=== PATIENT | female | born 1945 | race Caucasian/White ===

== ENCOUNTER 2019-07-07 10:50 | Inpatient (IN) | payer MEDICARE, MEDICAID ==
[~2019-07-07] VITALS: Ht 137.2 cm; Wt 78.1 kg
[~2019-07-07 10:50] MED LIST: ACET325T53 PO; AMI200 PO; ATOR20TA64 PO; DILT30TA36 PO; FAMO40TA7 PO; ONDA4TAB5 PO; REN800 PO
[2019-07-07 10:56] VITALS: BP_SYST 164
[2019-07-07 11:46] LABS: BASOPHILS % (AUTO) 0.3 % (0.0-2.0); EOSINOPHILS # (AUTO) 0.1 K/uL (0.0-0.4); EOSINOPHILS % (AUTO) 0.8 % (0.0-4.0); HEMATOCRIT 39.4 % (36-48); HEMOGLOBIN 12.2 g/dL (12.0-16.0); LYMPHOCYTES # (AUTO) 1.7 K/uL (1.0-5.5); LYMPHOCYTES % (AUTO) 16.9 % (20.5-51.5); MEAN CORPUSCULAR HEMOGLOBIN 31 pg (27-31); MEAN CORPUSCULAR HGB CONC 31 % (32-36); MEAN CORPUSCULAR VOLUME 98 fL (79.0-98.0); MONOCYTES # (AUTO) 0.7 K/uL (0.0-1.0); MONOCYTES % (AUTO) 7.6 % (1.7-9.3); NEUTROPHILS # (AUTO) 7.3 K/uL (1.8-7.7); NEUTROPHILS % (AUTO) 74.4 % (40.0-70.0); PLATELET COUNT (AUTO) 165 K/uL (130-430); RED CELL DISTRIBUTION WIDTH 17.2 % (9.0-15.0); WHITE BLOOD COUNT (AUTO) 9.8 K/uL (4.8-10.8)
[2019-07-07 11:54] LABS: ANION GAP 18 (5-15); CALCIUM 8.7 mg/dL (8.4-11.0); CHLORIDE 95 mmol/L (98-107); GLUCOSE 192 mg/dL (70-99); SODIUM SERUM 131 mmol/L (136-145); UREA NITROGEN, BLOOD 82 mg/dL (8-21)
[2019-07-07 12:00] LABS: ALANINE AMINOTRANSFERASE 11 U/L (12-78); ALBUMIN 3.7 g/dL (3.4-4.8); ASPARTATE AMINOTRANSFERASE 22 U/L (10-37); TOTAL BILIRUBIN 0.3 mg/dL (0.0-1.0)
[2019-07-07 12:03] LABS: INR 3.6 (0.8-1.2); PROTHROMBIN TIME 35.4 SECS (9.5-12.5)
[2019-07-07 12:04] LABS: POTASSIUM 5.8 mmol/L (3.5-5.1)
[2019-07-07 12:05] LABS: CREATININE 9.07 mg/dL (0.55-1.30)
[2019-07-07] MEDS ORDERED: INSULIN REGULAR, HUMAN 10 UNITS/0.1 ML INJ IVP ONE (12:45)
[2019-07-07] MEDS ORDERED: SODIUM BICARBONATE 8.4% JECT 50 MEQ/50 ML SYRINGE IVP ONE (12:45)
[2019-07-07] MEDS ORDERED: DEXTROSE 50% JECT 50 ML DISP.SYRIN IVP ONE ×2 (12:45→17:30)
[2019-07-07] MEDS ORDERED: TRAZ-250 PO (16:34)
[2019-07-07] MEDS ORDERED: LACT10SO6 PO (16:34)
[2019-07-07] MEDS ORDERED: ALBMDI INH (16:34)
[2019-07-07] MEDS ORDERED: CETI10CA20 PO (16:34)
[2019-07-07] MEDS ORDERED: SSREG SUBCUT (16:34)
[2019-07-07] MEDS ORDERED: WARF5TAB2 PO (16:34)
[2019-07-07] MEDS ORDERED: HUM100IN SQ (16:34)
[2019-07-07] MEDS ORDERED: FER300L PO (16:34)
[2019-07-07 17:00] LABS: CALCIUM 8.4 mg/dL (8.4-11.0); CHLORIDE 97 mmol/L (98-107); GLUCOSE 163 mg/dL (70-99); SODIUM SERUM 134 mmol/L (136-145)
[2019-07-07 17:10] LABS: ANION GAP 18 (5-15)
[2019-07-07 17:11] LABS: UREA NITROGEN, BLOOD 85 mg/dL (8-21)
[2019-07-07 17:14] LABS: POTASSIUM 6.3 mmol/L (3.5-5.1)
[2019-07-07] MEDS ORDERED: INSULIN REGULAR, HUMAN 100 UNITS/ML, 10 ML VIAL SUBCUT ONE (17:30)
[2019-07-07] MEDS ORDERED: DEXTROSE 50% JECT 50 ML DISP.SYRIN IVP PRN (18:00)
[2019-07-07] MEDS ORDERED: SODIUM POLYSTYRENE SULFONATE 15 GM/60 ML UDBTL PO ONE ×2 (18:15→18:30)
[2019-07-07] MEDS ORDERED: SODIUM POLYSTYRENE SULFONATE 15 GM/60 ML UDBTL ONE (18:29)
[2019-07-07 18:46] VITALS: BP_SYST 158
[2019-07-07 19:49] VITALS: BP_SYST 157
[2019-07-07] MEDS: DILTIAZEM HCL 30 MG TABLET PO SCH (21:00)
[2019-07-07] MEDS ORDERED: HEPARIN SODIUM,PORCINE 5000 UNITS/ML VIAL ONE (22:27)
[2019-07-07] MEDS: FAMOTIDINE 20 MG TABLET PO SCH (23:15)
[2019-07-07] MEDS: INSULIN REGULAR, HUMAN 100 UNITS/ML, 10 ML VIAL (humuLIN R) SUBCUT PRN (23:28)
[2019-07-08 00:07] VITALS: BP_SYST 106
[2019-07-08 06:32] LABS: BASOPHILS % (AUTO) 0.3 % (0.0-2.0); EOSINOPHILS # (AUTO) 0.1 K/uL (0.0-0.4); EOSINOPHILS % (AUTO) 1.4 % (0.0-4.0); HEMATOCRIT 32.9 % (36-48); HEMOGLOBIN 10.7 g/dL (12.0-16.0); LYMPHOCYTES # (AUTO) 1.1 K/uL (1.0-5.5); LYMPHOCYTES % (AUTO) 17.2 % (20.5-51.5); MEAN CORPUSCULAR HEMOGLOBIN 30 pg (27-31); MEAN CORPUSCULAR HGB CONC 33 % (32-36); MEAN CORPUSCULAR VOLUME 93 fL (79.0-98.0); MONOCYTES # (AUTO) 0.7 K/uL (0.0-1.0); MONOCYTES % (AUTO) 11.6 % (1.7-9.3); NEUTROPHILS # (AUTO) 4.5 K/uL (1.8-7.7); NEUTROPHILS % (AUTO) 69.5 % (40.0-70.0); PLATELET COUNT (AUTO) 147 K/uL (130-430); RED BLOOD CELL COUNT(AUTO) 3.53 MIL/uL (4.2-6.2); RED CELL DISTRIBUTION WIDTH 16.7 % (9.0-15.0); WHITE BLOOD COUNT (AUTO) 6.4 K/uL (4.8-10.8)
[2019-07-08 06:46] LABS: ANION GAP 8 (5-15); CALCIUM 7.7 mg/dL (8.4-11.0); CHLORIDE 96 mmol/L (98-107); CREATININE 5.58 mg/dL (0.55-1.30); GLUCOSE 83 mg/dL (70-99); SODIUM SERUM 132 mmol/L (136-145); UREA NITROGEN, BLOOD 35 mg/dL (8-21)
[2019-07-08 07:46] VITALS: BP_SYST 114
[2019-07-08 08:14] LABS: POTASSIUM 2.7 mmol/L (3.5-5.1)
[2019-07-08] MEDS: DILTIAZEM HCL 30 MG TABLET PO SCH ×3 (08:50→22:07)
[2019-07-08] MEDS: ATORVASTATIN 20 MG TABLET PO SCH (08:51)
[2019-07-08] MEDS: AMIODARONE HCL 200 MG TABLET PO SCH (08:51)
[2019-07-08] MEDS: FERROUS SULFATE 300 MG/5 ML UDC PO SCH (08:51)
[2019-07-08] MEDS: INSULIN REGULAR, HUMAN 100 UNITS/ML, 10 ML VIAL (humuLIN R) SUBCUT PRN (11:56)
[2019-07-08 12:45] VITALS: BP_SYST 101
[2019-07-08 14:57] VITALS: BP_SYST 95
[2019-07-08 16:16] VITALS: BP_SYST 105
[2019-07-08] MEDS ORDERED: HUM100IN SQ (16:24)
[2019-07-08] MEDS ORDERED: FERR-69 PO (16:24)
[2019-07-08] MEDS ORDERED: FAMO20TA8 PO (16:24)
[2019-07-08] MEDS ORDERED: CICL6.1H5 NS (16:24)
[2019-07-08] MEDS ORDERED: TRAM50TA2 PO (16:25)
[2019-07-08 20:00] VITALS: BP_SYST 127
[2019-07-08] MEDS: FAMOTIDINE 20 MG TABLET PO SCH (21:00)
[2019-07-09 01:23] VITALS: BP_SYST 104
[2019-07-09] MEDS: DILTIAZEM HCL 30 MG TABLET PO SCH ×3 (09:00→21:33)
[2019-07-09] MEDS: ATORVASTATIN 20 MG TABLET PO SCH (09:00)
[2019-07-09] MEDS: AMIODARONE HCL 200 MG TABLET PO SCH (09:00)
[2019-07-09] MEDS: FERROUS SULFATE 300 MG/5 ML UDC PO SCH (10:24)
[2019-07-09 12:32] VITALS: BP_SYST 132
[2019-07-09] MEDS: INSULIN REGULAR, HUMAN 100 UNITS/ML, 10 ML VIAL (humuLIN R) SUBCUT PRN (13:04)
[2019-07-09 16:00] VITALS: BP_SYST 127
[2019-07-09 20:00] VITALS: BP_SYST 110
[2019-07-09] MEDS: FAMOTIDINE 20 MG TABLET PO SCH (21:00)
[2019-07-10] MEDS: INSULIN REGULAR, HUMAN 100 UNITS/ML, 10 ML VIAL (humuLIN R) SUBCUT PRN ×2 (00:14→11:47)
[2019-07-10] MEDS: DILTIAZEM HCL 30 MG TABLET PO SCH ×2 (08:41→16:03)
[2019-07-10] MEDS: FERROUS SULFATE 300 MG/5 ML UDC PO SCH (08:42)
[2019-07-10] MEDS: AMIODARONE HCL 200 MG TABLET PO SCH (08:42)
[2019-07-10] MEDS: ATORVASTATIN 20 MG TABLET PO SCH (08:43)
[2019-07-10 08:48] VITALS: BP_SYST 109
[2019-07-10 12:35] VITALS: BP_SYST 108
[2019-07-10 13:37] LABS: BASOPHILS % (AUTO) 0.5 % (0.0-2.0); EOSINOPHILS # (AUTO) 0.3 K/uL (0.0-0.4); EOSINOPHILS % (AUTO) 3.5 % (0.0-4.0); HEMATOCRIT 39.1 % (36-48); HEMOGLOBIN 12.8 g/dL (12.0-16.0); LYMPHOCYTES # (AUTO) 1.3 K/uL (1.0-5.5); LYMPHOCYTES % (AUTO) 16.7 % (20.5-51.5); MEAN CORPUSCULAR HEMOGLOBIN 31 pg (27-31); MEAN CORPUSCULAR HGB CONC 33 % (32-36); MEAN CORPUSCULAR VOLUME 95 fL (79.0-98.0); MONOCYTES # (AUTO) 0.6 K/uL (0.0-1.0); MONOCYTES % (AUTO) 7.3 % (1.7-9.3); NEUTROPHILS # (AUTO) 5.8 K/uL (1.8-7.7); PLATELET COUNT (AUTO) 168 K/uL (130-430); RED BLOOD CELL COUNT(AUTO) 4.13 MIL/uL (4.2-6.2); RED CELL DISTRIBUTION WIDTH 16.6 % (9.0-15.0)
[2019-07-10 13:51] LABS: ANION GAP 13 (5-15); CALCIUM 8.6 mg/dL (8.4-11.0); CHLORIDE 92 mmol/L (98-107); CREATININE 6.34 mg/dL (0.55-1.30); GLUCOSE 248 mg/dL (70-99); POTASSIUM 3.7 mmol/L (3.5-5.1); SODIUM SERUM 130 mmol/L (136-145); UREA NITROGEN, BLOOD 52 mg/dL (8-21)
[2019-07-10 15:32] LABS: INR 1.2 (0.8-1.2); PROTHROMBIN TIME 11.7 SECS (9.5-12.5)
[2019-07-10 16:03] VITALS: BP_SYST 125
[2019-07-10 16:39] VITALS: BP_SYST 125
[2019-07-10] MEDS ORDERED: WARF2.5T2 PO (18:10)
== END 2019-07-10 19:17 | disposition home or self-care (01) | DRG 640 ==
LOC: SED 10:50 → STU 16:33
PROVIDERS: ADMIT Internal Medicine Hospice and Palliative Medicine; ATTEND Internal Medicine Hospice and Palliative Medicine
PROC: 5A1D70Z Performance of Urinary Filtration, Intermittent, Less than 6 Hours Per Day (ICD-10-PCS; principal; 2019-07-07)
PROC: 5A1D70Z Performance of Urinary Filtration, Intermittent, Less than 6 Hours Per Day (ICD-10-PCS; 2019-07-09)
DX: E87.5 Hyperkalemia (principal); N18.6 End stage renal disease; I13.2 Hypertensive heart and chronic kidney disease with heart failure and with stage 5 chronic kidney disease, or end stage renal disease; I50.32 Chronic diastolic (congestive) heart failure; E87.70 Fluid overload, unspecified; I25.10 Atherosclerotic heart disease of native coronary artery without angina pectoris; E11.51 Type 2 diabetes mellitus with diabetic peripheral angiopathy without gangrene; J45.909 Unspecified asthma, uncomplicated; E11.22 Type 2 diabetes mellitus with diabetic chronic kidney disease; T45.515A Adverse effect of anticoagulants, initial encounter; Y92.89 Other specified places as the place of occurrence of the external cause; Z99.2 Dependence on renal dialysis; Z79.899 Other long term (current) drug therapy; Z79.4 Long term (current) use of insulin; Z88.8 Allergy status to other drugs, medicaments and biological substances; Z91.018 Allergy to other foods
CPT/HCPCS: 36415; 71045; 71250-TC; 80048; 80053; 82962; 83605; 83880; 84484; 85025; 85610-TC; 85730-TC; 87040-TC; 87081; 90935; 90937; 93005; 96374; 96375; 96376; 99285; G0378; J1644; J1815; J7030

== ENCOUNTER 2020-09-13 12:39 | Emergency (ER) | payer MEDICARE, MEDICAID, SELFPAY ==
[~2020-09-13] VITALS: Ht 147.3 cm; Wt 74.8 kg
[~2020-09-13 12:39] MED LIST changes: +ALBMDI INH; +BENZ-16 PO; +CETI10CA20 PO; +CICL6.1H5 NS; +COLC0.6T67 PO; +FAMO20TA8 PO; -FAMO40TA7 PO; +FERR-69 PO; +LACT10SO6 PO; +SSREG SUBCUT; +TRAM50TA2 PO; +WARF2.5T2 PO
--- NOTE | 2020-09-13 12:40 | NUR ---
Placed in room 4 . Placed on sports management intern, blood pressure machine and pulse oximeter. To gown for exam. Side rails up.
[2020-09-13 12:44] VITALS: BP_SYST 146
--- NOTE | 2020-09-13 12:45 | NUR ---
Pt bib EMS from [facility] with c/o SOB since this morning. Reports h/o asthma, HTN and ESRD, due for dialysis today. States she was Covid positive in July. Per EMS O2 saturation decreased during transport and was started on a breathing treatment. Current 02 sat 97% on RA. V/S stable, pt is afebrile.
--- NOTE | 2020-09-13 12:55 | NUR ---
ER Dr. Garrett at bedside examining patient.
--- NOTE | 2020-09-13 12:59 | NUR ---
Medication Reconcilliation completed.
--- NOTE | 2020-09-13 13:05 | NUR ---
Respiratory at bedside for breathing treatment.
[2020-09-13] MEDS ORDERED: methylPREDNISolone SOD SUCC/PF 62.5 MG/ML VIAL IVP ONE (13:15)
[2020-09-13] MEDS ORDERED: IPRATROPIUM/ALBUTEROL SULFATE 3 ML AMPUL.NEB (DUONEB) INH ONE (13:15)
--- NOTE | 2020-09-13 13:25 | NUR ---
Radiology at bedside for CXR.
[2020-09-13 14:55] LABS: BASOPHILS % (AUTO) 0.6 % (0.0-2.0); EOSINOPHILS % (AUTO) 0.4 % (0.0-4.0); HEMATOCRIT 27.6 % (36-48); LYMPHOCYTES # (AUTO) 0.8 K/uL (1.0-5.5); LYMPHOCYTES % (AUTO) 9.3 % (20.5-51.5); MEAN CORPUSCULAR HEMOGLOBIN 32 pg (27-31); MEAN CORPUSCULAR HGB CONC 32 % (32-36); MEAN CORPUSCULAR VOLUME 100 fL (79.0-98.0); MONOCYTES # (AUTO) 0.8 K/uL (0.0-1.0); MONOCYTES % (AUTO) 9.5 % (1.7-9.3); NEUTROPHILS # (AUTO) 6.8 K/uL (1.8-7.7); NEUTROPHILS % (AUTO) 80.2 % (40.0-70.0); PLATELET COUNT (AUTO) 223 K/uL (130-430); RED BLOOD CELL COUNT(AUTO) 2.77 MIL/uL (4.2-6.2); RED CELL DISTRIBUTION WIDTH 17.1 % (9.0-15.0); WHITE BLOOD COUNT (AUTO) 8.5 K/uL (4.8-10.8)
[2020-09-13 15:18] LABS: ALANINE AMINOTRANSFERASE 184 U/L (12-78); ALBUMIN 3.1 g/dL (3.4-4.8); ANION GAP 11 (5-15); ASPARTATE AMINOTRANSFERASE 17 U/L (10-37); CHLORIDE 101 mmol/L (98-107); GLUCOSE 159 mg/dL (70-99); POTASSIUM 5.2 mmol/L (3.5-5.1); SODIUM SERUM 137 mmol/L (136-145); TOTAL BILIRUBIN 0.5 mg/dL (0.0-1.0); UREA NITROGEN, BLOOD 44 mg/dL (8-21)
[2020-09-13 15:37] LABS: CREATININE 7.57 mg/dL (0.55-1.30)
--- NOTE | 2020-09-13 17:25 | NUR ---
Patient given written and verbal discharge instructions and verbalizes understanding. ER MD discussed with patient the results and treatment provided. Patient in stable condition. ID arm band removed. IV catheter removed intact and dressing applied, no active bleeding. Rx of Prednisone and Albuterol given. Patient educated on pain management and to follow up with PMD. Pain Scale 0. Opportunity for questions provided and answered. Medication side effect fact sheet provided.
[2020-09-13 17:38] VITALS: BP_SYST 146
== END 2020-09-13 17:38 | disposition home or self-care (01) ==
LOC: SED 12:39
DX: J44.1 Chronic obstructive pulmonary disease with (acute) exacerbation (principal); R06.02 Shortness of breath; I12.0 Hypertensive chronic kidney disease with stage 5 chronic kidney disease or end stage renal disease; E11.22 Type 2 diabetes mellitus with diabetic chronic kidney disease; N18.6 End stage renal disease; Z79.899 Other long term (current) drug therapy; Z79.4 Long term (current) use of insulin; Z88.8 Allergy status to other drugs, medicaments and biological substances; Z88.1 Allergy status to other antibiotic agents
CPT/HCPCS: 36415; 36600; 71045; 80053; 82550; 82803; 82962; 83880; 84484; 85025; 93005; 94640; 96374; 99285; J2930

== ENCOUNTER 2021-07-19 23:04 | Emergency (ER) | payer MEDICARE, MEDICAID, SELFPAY ==
[~2021-07-19] VITALS: Ht 160 cm; Wt 65.8 kg
[~2021-07-19 23:04] MED LIST changes: -AMI200 PO; +AMIO200T66 PO; -BENZ-16 PO
[2021-07-19 23:24] VITALS: BP_SYST 110
[2021-07-20] MEDS ORDERED: ACET-2634 PO (00:24)
[2021-07-20] MEDS ORDERED: HYDROcodone/ACETAMIN 5-325 MG TAB (NORCO/ VICODIN) PO ONE (00:30)
[2021-07-20] MEDS ORDERED: ACETAMINOPHEN 500 MG TABLET ONE (01:14)
[2021-07-20] MEDS ORDERED: ACETAMINOPHEN 500 MG TABLET PO ONE (01:15)
[2021-07-20 01:25] VITALS: BP_SYST 110
== END 2021-07-20 01:25 | disposition home or self-care (01) ==
LOC: SED 23:04
DX: S93.402A Sprain of unspecified ligament of left ankle, initial encounter (principal); E11.22 Type 2 diabetes mellitus with diabetic chronic kidney disease; I12.0 Hypertensive chronic kidney disease with stage 5 chronic kidney disease or end stage renal disease; N18.6 End stage renal disease; Z88.8 Allergy status to other drugs, medicaments and biological substances; Z79.899 Other long term (current) drug therapy; Z99.2 Dependence on renal dialysis; X50.0XXA Overexertion from strenuous movement or load, initial encounter; Y93.89 Activity, other specified; Y92.89 Other specified places as the place of occurrence of the external cause; Y99.8 Other external cause status
CPT/HCPCS: 99283

== ENCOUNTER 2022-09-15 01:39 | Emergency (ER) | payer MEDICARE, MEDICAID ==
[~2022-09-15] VITALS: Ht 149.9 cm; Wt 76.7 kg
[~2022-09-15 01:39] MED LIST changes: +ACET-2634 PO; +DILT30TA35 PO; -DILT30TA36 PO
[2022-09-15 01:43] VITALS: BP_SYST 130
[2022-09-15] MEDS ORDERED: WARF2.5T83 PO (01:56)
[2022-09-15] MEDS ORDERED: MIDO5TAB4 PO (01:56)
[2022-09-15] MEDS ORDERED: WARF-52 PO (01:56)
[2022-09-15] MEDS ORDERED: LOPE2CAP PO (01:56)
--- NOTE | 2022-09-15 01:58 | NUR ---
ASSUMED PT CARE AT THIS TIME; PT A/A/OX4; ESRD ON DIALYSIS M/W/F, LAST SESSION ON SUNDAY; PT HERE FOR BLEEDING SHUNT ACCESS. UNWRAPPED WOUND AND ASSESSED WITH ED MD. 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 WCTM
[2022-09-15 02:18] LABS: BASOPHILS % (AUTO) 0.6 % (0.0-2.0); EOSINOPHILS # (AUTO) 0.1 K/uL (0.0-0.4); EOSINOPHILS % (AUTO) 1.8 % (0.0-4.0); HEMATOCRIT 35.3 % (36-48); HEMOGLOBIN 11.8 g/dL (12.0-16.0); LYMPHOCYTES # (AUTO) 2.6 K/uL (1.0-5.5); LYMPHOCYTES % (AUTO) 38.4 % (20.5-51.5); MEAN CORPUSCULAR HEMOGLOBIN 32 pg (27-31); MEAN CORPUSCULAR HGB CONC 33 % (32-36); MEAN CORPUSCULAR VOLUME 97 fL (79.0-98.0); MONOCYTES # (AUTO) 0.6 K/uL (0.0-1.0); MONOCYTES % (AUTO) 8.3 % (1.7-9.3); NEUTROPHILS # (AUTO) 3.5 K/uL (1.8-7.7); NEUTROPHILS % (AUTO) 50.9 % (40.0-70.0); PLATELET COUNT (AUTO) 129 K/uL (130-430); RED BLOOD CELL COUNT(AUTO) 3.65 MIL/uL (4.2-6.2); RED CELL DISTRIBUTION WIDTH 14.1 % (9.0-15.0); WHITE BLOOD COUNT (AUTO) 6.9 K/uL (4.8-10.8)
[2022-09-15 02:23] LABS: ANION GAP 11 (5-15); CALCIUM 9.6 mg/dL (8.4-11.0); CHLORIDE 100 mmol/L (98-107); GLUCOSE 156 mg/dL (70-99); UREA NITROGEN, BLOOD 54 mg/dL (8-21)
[2022-09-15 02:27] LABS: ALANINE AMINOTRANSFERASE 26 U/L (12-78); ALBUMIN 3.7 g/dL (3.4-4.8); ASPARTATE AMINOTRANSFERASE 14 U/L (10-37); TOTAL BILIRUBIN 0.3 mg/dL (0.0-1.0)
[2022-09-15 02:32] LABS: INR 1.4 (0.8-1.2); PROTHROMBIN TIME 14.4 SECS (9.5-12.5)
--- NOTE | 2022-09-15 03:00 | NUR ---
IVY SÁNCHEZ Sing at bedside.
--- NOTE | 2022-09-15 03:05 | NUR ---
one suture applied to shunt. no s/s of bleeding at this time; will acquire ride back to facility
--- NOTE | 2022-09-15 04:46 | NUR ---
Received report from LUIS Pena; assuming care of patient at this time.
--- NOTE | 2022-09-15 05:00 | NUR ---
Called [facility] and gave report to Tacho rn bariatric; who received discharge order instructions. All questions answered at this time.
[2022-09-15 06:20] VITALS: BP_SYST 151
--- NOTE | 2022-09-15 06:20 | NUR ---
Patient given written and verbal discharge instructions and verbalizes understanding. ER MD discussed with patient the results and treatment provided. Patient in stable condition. ID arm band removed. Patient educated on pain management and to follow up with PMD. Pain Scale 0/10. Opportunity for questions provided and answered. Medication side effect fact sheet provided. Patient A/Ox3, VSS, resp even and unlabored. Patient transferred to [facility] via [facility] in stable condition and accompanied by Enrrique, from [facility].
== END 2022-09-15 06:20 | disposition home or self-care (01) ==
LOC: SED 01:39
DX: R58 Hemorrhage, not elsewhere classified (principal); I13.0 Hypertensive heart and chronic kidney disease with heart failure and stage 1 through stage 4 chronic kidney disease, or unspecified chronic kidney disease; N18.9 Chronic kidney disease, unspecified; E11.9 Type 2 diabetes mellitus without complications; Z88.2 Allergy status to sulfonamides; Z88.6 Allergy status to analgesic agent; Z88.8 Allergy status to other drugs, medicaments and biological substances; Z91.018 Allergy to other foods; Z79.4 Long term (current) use of insulin; Z79.899 Other long term (current) drug therapy
CPT/HCPCS: 36415; 80053; 85025; 85610-TC; 85730-TC; 99283